=== PATIENT | male | born 1995 | race African-American/Black ===

== ENCOUNTER 2017-04-04 13:11 | Emergency (ER) | payer MEDICAID ==
[~2017-04-04] VITALS: Ht 177.8 cm; Wt 69.0 kg
[2017-04-04] MEDS ORDERED: PREDNISONE 20MG TABLET PO ONE (15:00)
[2017-04-04] MEDS ORDERED: DIPHENHYDRAMINE 50MG/ML VIAL IM ONE (15:00)
[2017-04-04 16:03] VITALS: BP 147/88
== END 2017-04-04 16:05 | disposition home or self-care (01) ==
LOC: ER 13:11
DX: T78.1XXA Other adverse food reactions, not elsewhere classified, initial encounter (principal); X58.XXXA Exposure to other specified factors, initial encounter; Z91.02 Food additives allergy status
CPT/HCPCS: 96372; 99283; J1200; J7512